=== PATIENT | female | born 1960 | race Caucasian/White ===

== ENCOUNTER 2024-02-27 07:55 | Day surgery (SDC) | payer MEDICAID, OTHER ==
[~2024-02-27] VITALS: Ht 152.4 cm; Wt 66.7 kg
[2024-02-27] MEDS ORDERED: MIDAZOLAM HCL 5 MG/5 ML VIAL ONE ×2 (08:40→11:37)
[2024-02-27] MEDS ORDERED: MEPERIDINE 100 MG INJ. 100 MG/ML VIAL ONE (08:40)
[2024-02-27 11:09] VITALS: O2SAT 97
[2024-02-27] MEDS ORDERED: ONDANSETRON HCL 4 MG/2 ML VIAL ONE (11:39)
[2024-02-27 18:25] VITALS: BP_SYST 127; PULSE 96; RESP 16
== END 2024-02-27 12:45 | disposition home or self-care (01) ==
LOC: SDS 07:55 → SMU 07:56 → SDS 12:45
PROVIDERS: ATTEND Internal Medicine Gastroenterology
DX: Z12.11 Encounter for screening for malignant neoplasm of colon (principal); K29.50 Unspecified chronic gastritis without bleeding; K29.80 Duodenitis without bleeding; R10.12 Left upper quadrant pain; K21.00 Gastro-esophageal reflux disease with esophagitis, without bleeding; K44.9 Diaphragmatic hernia without obstruction or gangrene; K64.8 Other hemorrhoids; Z90.49 Acquired absence of other specified parts of digestive tract; Z80.0 Family history of malignant neoplasm of digestive organs; Z79.899 Other long term (current) drug therapy
CPT/HCPCS: 45378; 43239; 99152; 87081; 36415; 88305; 88312; 88313; 99153; G0378; J2250; J2405; J2175